=== PATIENT | male | born 1975 ===

== ENCOUNTER 2024-11-03 16:04 | Inpatient (IN) | payer SELFPAY ==
[~2024-11-03] VITALS: Ht 172.7 cm; Wt 65.8 kg
[2024-11-03 17:34] VITALS: BP 128/82
[2024-11-03 18:33] LABS: BASO # 0.1 10*3/uL (0.0-0.1); BASO % 0.7 % (0.0-1.0); EOS # 0.1 10*3/uL (0.0-0.4); EOS % 1.3 % (1.0-4.0); MEAN CELL VOLUME 95.3 fl (80.0-94.0); MEAN CORPUSCULAR HGB 30.3 pg (27.0-31.0); MEAN PLATELET VOLUME 9.7 fl (9.6-12.3); MONO # 0.7 10*3/uL (0.1-1.0); MONO % 8.6 % (3.0-9.0); NEUT # 5.8 10*3/uL (2.3-7.9); NEUT % 70.4 % (47.0-73.0); NUCLEATED RED BLOOD CELL 0.0 % (0.0-0.0); NUCLEATED RED BLOOD CELL 0.0 10*3/uL (0.0-0.0); PLATELET COUNT AUTOMATED 268 10*3/uL (130-400); RED CELL DISTRI WIDTH 14.1 % (0-14.5)
[2024-11-03 18:48] LABS: ACT PARTIAL THROMBO TIME 25.2 SECONDS (20.0-32.1)
[2024-11-03 18:56] LABS: BUN 14 mg/dl (9-23); SGPT/ALT 22 U/L (5-49)
[2024-11-03 20:00] VITALS: BP 173/93
[2024-11-04] VITALS: BP 125/70
[2024-11-04 05:08] LABS: ACT PARTIAL THROMBO TIME 26.1 SECONDS (20.0-32.1)
[2024-11-04 05:29] LABS: BUN 15 mg/dl (9-23); SGPT/ALT 19 U/L (5-49)
[2024-11-04 06:11] LABS: BASO # 0.1 10*3/uL (0.0-0.1); BASO % 0.9 % (0.0-1.0); EOS # 0.2 10*3/uL (0.0-0.4); EOS % 2.1 % (1.0-4.0); MEAN CELL VOLUME 93.3 fl (80.0-94.0); MEAN CORPUSCULAR HGB 31.0 pg (27.0-31.0); MEAN PLATELET VOLUME 10.3 fl (9.6-12.3); MONO # 0.8 10*3/uL (0.1-1.0); MONO % 8.6 % (3.0-9.0); NEUT # 5.8 10*3/uL (2.3-7.9); NEUT % 64.0 % (47.0-73.0); NUCLEATED RED BLOOD CELL 0.0 % (0.0-0.0); NUCLEATED RED BLOOD CELL 0.0 10*3/uL (0.0-0.0); PLATELET COUNT AUTOMATED 253 10*3/uL (130-400); RED CELL DISTRI WIDTH 14.1 % (0-14.5)
[2024-11-04 08:00] VITALS: BP 123/75
[2024-11-04] MEDS ORDERED: ADVIL200 MG PO (10:40)
[2024-11-04] MEDS ORDERED: TYLENOL EXTRA500 MG PO (10:40)
== END 2024-11-04 11:15 | disposition home or self-care (01) | DRG 394 ==
LOC: 4E 16:04
PROVIDERS: ADMIT Internal Medicine; ATTEND Internal Medicine
DX: K43.6 Other and unspecified ventral hernia with obstruction, without gangrene (principal); E46 Unspecified protein-calorie malnutrition; K59.00 Constipation, unspecified; G89.4 Chronic pain syndrome; R00.1 Bradycardia, unspecified; Z80.42 Family history of malignant neoplasm of prostate; Z83.3 Family history of diabetes mellitus; Z88.0 Allergy status to penicillin; Z79.899 Other long term (current) drug therapy; Z87.828 Personal history of other (healed) physical injury and trauma; Z68.22 Body mass index [BMI] 22.0-22.9, adult